=== PATIENT | female | born 1980 | race Two or more races ===

== ENCOUNTER 2018-06-26 15:46 | Emergency (ER) | payer SELFPAY ==
[~2018-06-26] VITALS: Ht 160 cm; Wt 114.3 kg
[2018-06-26] MEDS ORDERED: HYOSCYAMINE 0.125 MG TAB.RAPDIS PO STA (16:26)
[2018-06-26] MEDS ORDERED: IV RINGERS,LACTATED 1000ML 1,000 ML IV SCH (16:30)
[2018-06-26 16:41] LABS: BASO # 0.1 x10^3/uL (0.0-0.2); BASO % 1 % (0-3); EOS # 0.1 x10^3/uL (0.0-0.7); EOS % 2 % (0-3); HEMATOCRIT 37.8 % (36.0-47.0); HEMOGLOBIN 12.8 g/dL (12.0-15.5); LYMPH # 2.6 x10^3/uL (1.0-4.8); LYMPH % 38 % (24-48); MEAN CORPUSCULAR HEMOGLOBIN 31 pg (25-35); MEAN CORPUSCULAR HGB CONC 34 g/dL (31-37); MEAN CORPUSCULAR VOLUME 91 fL (79-100); MONO # 0.4 x10^3/uL (0.0-1.1); MONO % 7 % (0-9); NEUT # 3.6 x10^3uL (1.8-7.7); NEUT % 52 % (31-73); PLATELET COUNT 247 x10^3/uL (140-400); RED BLOOD COUNT 4.14 x10^6/uL (3.50-5.40); RED CELL DISTRIBUTION WIDTH 13.3 % (11.5-14.5); WHITE BLOOD COUNT 6.9 x10^3/uL (4.0-11.0)
[2018-06-26] MEDS ORDERED: KETOROLAC 30 MG/ML VIAL. IV ONE (16:45)
[2018-06-26 16:50] LABS: PROTHROMBIN TIME PATIENT 11.9 SEC (11.7-14.0)
[2018-06-26 16:51] LABS: CALCIUM 9.1 mg/dL (8.5-10.1); CREATININE 0.6 mg/dL (0.6-1.0); GFR 112.5; POTASSIUM 4.2 mmol/L (3.5-5.1)
--- NOTE | 2018-06-26 16:54 | PHYS DOC ---
Past Medical History Past Medical History: Migraines Past Surgical History: Alcohol Use: None Drug Use: None Adult General Chief Complaint Chief Complaint: ABDOMINAL PAIN HPI HPI Patient is a 37 year old FEMALE who presents with diffuse abdominal pain that started approximately 3 hours ago causing the patient some difficulty breathing at the time and some chest pain. Patient reports the chest pain does get better with walking. No worsening with deep breaths. It does get worse with moving around. Patient reports that her abdomen feels bloated. No issues with bowel habits, no blood in the stool, no diarrhea, no constipation. Patient's surgical history is significant for . No previous appendectomy nor cholecystectomy. Patient reports some nausea, no vomiting. Has taken no medication for pain.[] Review of Systems Review of Systems Constitutional: Denies fever or chills [] Eyes: Denies change in visual acuity, redness, or eye pain [] HENT: Denies nasal congestion or sore throat [] Respiratory: Denies cough or shortness of breath [] Cardiovascular: No additional information not addressed in HPI [] GI: See history of present illness[] : Denies dysuria or hematuria [] Musculoskeletal: Denies back pain or joint pain [] Integument: Denies rash or skin lesions [] Neurologic: Denies headache, focal weakness or sensory changes [] Endocrine: Denies polyuria or polydipsia [] All other systems were reviewed and found to be within normal limits, except as documented in this note. Current Medications Current Medications Current Medications Medications (Trade) Dose Ordered Sig/Aaron Start Time Stop Time Status Last Admin Dose Admin Hyoscyamine (Anaspaz) 0.125 mg 1X STAT 06/26/18 16:26 06/26/18 16:34 DC 06/26/18 16:50 0.125 MG Info (CONTRAST GIVEN -- Rx MONITORING) 1 each PRN DAILY PRN 06/26/18 17:00 06/28/18 16:59 Iohexol (Omnipaque 300 Mg/ml) 75 ml 1X ONCE 06/26/18 17:00 06/26/18 17:01 DC 06/26/18 17:00 75 ML Ketorolac Tromethamine (Toradol 30mg Vial) 30 mg 1X ONCE 06/26/18 16:45 06/26/18 16:46 DC 06/26/18 16:50 30 MG Ringer's Solution 1,000 ml @ 1,000 mls/hr Q1H 06/26/18 16:30 06/26/18 17:29 DC 06/26/18 16:41 1,000 MLS/HR Allergies Allergies Allergies Coded Allergies Type Severity Reaction Last Updated Verified No Known Drug Allergies 06/26/18 No Physical Exam Physical Exam Constitutional: Well developed, well nourished, mild discomfort, non-toxic appearance. [] HENT: Normocephalic, atraumatic, bilateral external ears normal, oropharynx moist, no oral exudates, nose normal. [] Eyes: PERRLA, EOMI, conjunctiva normal, no discharge. [] Neck: Normal range of motion, no tenderness, supple, no stridor. [] Cardiovascular:Heart rate regular rhythm, no murmur, patient has some tenderness in the mid sternum that re-creates her pain when palpated. There is no crepitus. [] Lungs & Thorax: Bilateral breath sounds clear to auscultation [] Abdomen: Bowel sounds normal, soft, diffuse tenderness, no masses, no pulsatile masses. [] Skin: Warm, dry, no erythema, no rash. [] Back: No tenderness, no CVA tenderness. [] Extremities: No tenderness, no cyanosis, no clubbing, ROM intact, no edema. [] Neurologic: Alert and oriented X 3, normal motor function, normal sensory function, no focal deficits noted. [] Psychologic: Affect normal, judgement normal, mood normal. [] Current Patient Data Vital Signs Vital Signs Date Time Temp Pulse Resp B/P (MAP) Pulse Ox O2 Delivery O2 Flow Rate FiO2 06/26/18 16:00 97.5 78 18 132/83 (99) 97 Room Air 97.5 Lab Values Laboratory Tests Test 06/26/18 16:04 06/26/18 16:50 06/26/18 17:43 White Blood Count 6.9 x10^3/uL (4.0-11.0) Red Blood Count 4.14 x10^6/uL (3.50-5.40) Hemoglobin 12.8 g/dL (12.0-15.5) Hematocrit 37.8 % (36.0-47.0) Mean Corpuscular Volume 91 fL (79-100) Mean Corpuscular Hemoglobin 31 pg (25-35) Mean Corpuscular Hemoglobin Concent 34 g/dL (31-37) Red Cell Distribution Width 13.3 % (11.5-14.5) Platelet Count 247 x10^3/uL (140-400) Neutrophils (%) (Auto) 52 % (31-73) Lymphocytes (%) (Auto) 38 % (24-48) Monocytes (%) (Auto) 7 % (0-9) Eosinophils (%) (Auto) 2 % (0-3) Basophils (%) (Auto) 1 % (0-3) Neutrophils # (Auto) 3.6 x10^3uL (1.8-7.7) Lymphocytes # (Auto) 2.6 x10^3/uL (1.0-4.8) Monocytes # (Auto) 0.4 x10^3/uL (0.0-1.1) Eosinophils # (Auto) 0.1 x10^3/uL (0.0-0.7) Basophils # (Auto) 0.1 x10^3/uL (0.0-0.2) Prothrombin Time 11.9 SEC (11.7-14.0) Prothrombin Time INR 0.9 (0.8-1.1) D-Dimer (Mignon) < 0.27 ug/mlFEU Sodium Level 140 mmol/L (136-145) Potassium Level 4.2 mmol/L (3.5-5.1) Chloride Level 104 mmol/L (98-107) Carbon Dioxide Level 23 mmol/L (21-32) Anion Gap 13 (6-14) Blood Urea Nitrogen 14 mg/dL (7-20) Creatinine 0.6 mg/dL (0.6-1.0) Estimated GFR (Cockcroft-Gault) 112.5 BUN/Creatinine Ratio 23 (6-20) H Glucose Level 117 mg/dL (70-99) H Calcium Level 9.1 mg/dL (8.5-10.1) Total Bilirubin 0.2 mg/dL (0.2-1.0) Aspartate Amino Transferase (AST) 27 U/L (15-37) Alanine Aminotransferase (ALT) 58 U/L (14-59) Alkaline Phosphatase 120 U/L (46-116) H Troponin I Quantitative < 0.017 ng/mL (0.000-0.055) Total Protein 7.4 g/dL (6.4-8.2) Albumin 3.6 g/dL (3.4-5.0) Albumin/Globulin Ratio 0.9 (1.0-1.7) L Lipase 198 U/L (73-393) Urine Collection Type Unknown Urine Color Yellow Urine Clarity Clear Urine pH 7.0 Urine Specific [place] 1.010 Urine Protein Negative mg/dL (NEG-TRACE) Urine Glucose (UA) Negative mg/dL (NEG) Urine Ketones (Stick) Negative mg/dL (NEG) Urine Blood Negative (NEG) Urine Nitrite Negative (NEG) Urine Bilirubin Negative (NEG) Urine Urobilinogen Dipstick 0.2 mg/dL (0.2 mg/dL) Urine Leukocyte Esterase Negative (NEG) Urine RBC Occ /HPF (0-2) Urine WBC 1-4 /HPF (0-4) Urine Squamous Epithelial Cells Many /LPF Urine Bacteria 0 /HPF (0-FEW) POC Urine HCG, Qualitative Hcg negative (Negative) Laboratory Tests 06/26/18 16:04 Laboratory Tests 06/26/18 16:04 EKG EKG EKG shows a normal sinus rhythm at 74 bpm, no ST elevations, normal axis, normal QTC at 422 ms. There is no old EKG available for comparison.[] Radiology/Procedures Radiology/Procedures Chest x-ray showed no acute features Abdominal and pelvis CT scan showed no acute features[] Course & Med Decision Making Course & Med Decision Making Pertinent Labs and Imaging studies reviewed. (See chart for details) Medical decision making: There is no evidence of obstruction, perforation, nor surgical etiology for the abdominal pain. No evidence of acute coronary syndrome , no evidence of pulmonary embolism, nor pneumonia. ED course: Patient arrived, was placed in bed, tolerated exam well. Patient was given pain medication with some improvement. Patient was transported to and from CT scan without any complications. After return of lab and x-ray findings, these were discussed with the patient who voiced understanding. All questions were answered.[] Dragon Disclaimer Dragon Disclaimer This electronic medical record was generated, in whole or in part, using a voice recognition dictation system. Departure Departure Impression: Primary Impression: Abdominal pain Additional Impression: Chest pain Referrals: NO PCP (PCP) Patient Instructions: Abdominal Pain, Chest Pain (Nonspecific) Additional Instructions: Follow-up with your regular doctor in 2 days. Drink plenty of fluids. Return to the ER if any concerns. Scripts Metoclopramide Hcl (REGLAN) 10 Mg Tablet 10 MG PO QIDACHS, #30 TAB 0 Refills Prov: MARIETRIXIE 06/26/18 Meloxicam (MOBIC) 7.5 Mg Tablet 7.5 MG PO DAILY for 14 Days, #14 TAB Prov: MARIETRIXIE MELENDEZ 06/26/18 Dicyclomine Hcl (DICYCLOMINE HCL) 20 Mg Tablet 20 MG PO QID, #20 TAB Prov: SANTAMARLEEPHONGTRIXIE MELENDEZ 06/26/18 Problem Qualifiers Primary Impression: Abdominal pain Abdominal location: generalized Qualified Codes: R10.84 - Generalized abdominal pain Additional Impression: Chest pain Chest pain type: unspecified Qualified Codes: R07.9 - Chest pain, unspecified TRIXIE SALAZAR Jun 26, 2018 16:54
[2018-06-26 16:56] LABS: D-DIMER < 0.27 ug/mlFEU (0.00-0.50)
[2018-06-26 16:57] LABS: ALBUMIN 3.6 g/dL (3.4-5.0); ALBUMIN/GLOBULIN RATIO 0.9 (1.0-1.7); TOTAL BILIRUBIN 0.2 mg/dL (0.2-1.0); TOTAL PROTEIN 7.4 g/dL (6.4-8.2)
[2018-06-26] MEDS ORDERED: IOHEXOL 300 MG/ML 100ML VIAL. IV ONE (17:00)
[2018-06-26] MEDS ORDERED: CONTRAST GIVEN. MC PRN (17:00)
[2018-06-26 17:03] LABS: BILIRUBIN,URINE NEGATIVE (NEG); CLARITY,URINE CLEAR; COLOR,URINE YELLOW; NITRITE,URINE NEGATIVE (NEG); PROTEIN,URINE NEGATIVE (NEG-TRACE); UROBILINOGEN,URINE 0.2 mg/dL (0.2 mg/dL)
[2018-06-26 17:12] LABS: BACTERIA,URINE 0 /HPF (0-FEW); RBC,URINE OCC /HPF (0-2); SQUAMOUS EPITHELIAL CELL,UR MANY /LPF
--- NOTE | 2018-06-26 17:21 | RAD ---
EXAM: Abdomen and pelvis CT with intravenous contrast. HISTORY: Pain. TECHNIQUE: Computed tomographic images of the abdomen and pelvis were obtained following the administration of 75 cc Omnipaque 300 intravenous contrast. Multiplanar reformatting was performed. *One or more of the following individualized dose reduction techniques were utilized for this examination: 1. Automated exposure control. 2. Adjustment of the mA and/or kV according to patient size. 3. Use of iterative reconstruction technique. COMPARISON: None. FINDINGS: Evaluation of the lower thorax demonstrates posterior dependent and basilar atelectasis. There is no infiltrate or pleural effusion. There is slight increased extrapleural fat. The liver is upper normal in size and there is suspected slight hepatic steatosis. No focal hepatic lesion is seen. There is calcification within the gallbladder fundus likely due to cholelithiasis rather than wall calcification. The pancreas, spleen and adrenal glands are unremarkable. There are tiny renal cortical cysts. There is a 1.7 cm cyst with adjacent cortical scarring within the upper pole of the left kidney. The bladder is unremarkable. There is a 1.7 cm dominant right ovarian follicle. There is no appendicitis. There is no bowel obstruction. There is no abnormal bowel wall thickening. There is no lymphadenopathy. There is a fat-containing umbilical hernia. The hernia sac measures 4.9 cm. There is no suspicious osseous lesion. IMPRESSION: 1. No acute abdominal or pelvic finding. 2. Small fat-containing umbilical hernia. 3. Upper normal liver size and suspected slight hepatic steatosis. 4. Renal cysts and cortical scarring within the upper pole the left kidney. 5. Cholelithiasis. Electronically signed by: Talisha Bains MD (06/26/2018 5:17 PM) [facility]
--- NOTE | 2018-06-26 17:24 | RAD ---
PORTABLE CHEST 1V dated 06/26/2018 5:07 PM. Comparison: None. Clinical Indication: ER PATIENT. ATRAUMATIC MIDSTERNAL CHEST PAIN. NO PRIORS Findings: Single upright portable exam performed. Heart and mediastinal contours are within normal limits. Lungs are clear without focal consolidation. Vascular interstitium within normal limits. No pleural effusion or pneumothorax. Impression: Negative portable chest. Electronically signed by: Humberto Andersen MD (06/26/2018 5:21 PM) [id number]
[2018-06-26 18:03] VITALS: BP 129/68
[2018-06-26] MEDS ORDERED: MELO7.5T5 PO (18:10)
[2018-06-26] MEDS ORDERED: METO10TA81 PO (18:10)
[2018-06-26] MEDS ORDERED: DICY20TA3 PO (18:10)
--- NOTE | 2018-06-27 07:12 | EKG ---
[facility] [address] [place] [address] Test Date: 2018-06-26 Test Time: 16:04:40 Pat Name: JACQUI HERNANDEZ Department: Room: Gender: F Welfare Manager: : 1980 Requested By: TRIXIE SALAZAR Order Number: [id number] Reading MD: Jose Guzman MD Measurements Intervals [place] Rate: 74 P: 39 MI: 156 QRS: 24 QRSD: 90 T: 41 QT: 380 QTc: 422 Interpretive Statements SINUS RHYTHM Electronically Signed On 06-27-2018 17:50:56 MANAGEMENT NURSE RN by Jose Guzman MD
== END 2018-06-26 18:15 | disposition home or self-care (01) ==
LOC: ER 15:46
DX: R10.84 Generalized abdominal pain (principal); R07.89 Other chest pain
CPT/HCPCS: 36415; 71045; 74177; 80053; 81001; 81025; 83690; 84484; 85025; 85379; 85610; 93005; 96374; 99285; J1885; Q9967; J7120

== ENCOUNTER 2019-12-26 14:55 | Emergency (ER) | payer SELFPAY ==
[~2019-12-26] VITALS: Ht 154.9 cm; Wt 190.0 kg
[~2019-12-26 14:55] MED LIST: DICY20TA3 PO; MELO7.5T5 PO; METO10TA81 PO
[2019-12-26 15:30] LABS: BASO # 0.1 x10^3/uL (0.0-0.2); BASO % 1 % (0-3); EOS # 0.1 x10^3/uL (0.0-0.7); EOS % 1 % (0-3); HEMATOCRIT 41.4 % (36.0-47.0); HEMOGLOBIN 13.9 g/dL (12.0-15.5); LYMPH # 1.8 x10^3/uL (1.0-4.8); LYMPH % 24 % (24-48); MEAN CORPUSCULAR HEMOGLOBIN 31 pg (25-35); MEAN CORPUSCULAR HGB CONC 34 g/dL (31-37); MEAN CORPUSCULAR VOLUME 91 fL (79-100); MONO # 0.6 x10^3/uL (0.0-1.1); MONO % 8 % (0-9); NEUT # 4.9 x10^3/uL (1.8-7.7); NEUT % 66 % (31-73); PLATELET COUNT 263 x10^3/uL (140-400); RED BLOOD COUNT 4.56 x10^6/uL (3.50-5.40); RED CELL DISTRIBUTION WIDTH 13.5 % (11.5-14.5); WHITE BLOOD COUNT 7.4 x10^3/uL (4.0-11.0)
[2019-12-26] MEDS ORDERED: IV NORMAL SALINE 1000ML BAG 1,000 ML IV ONE (15:30)
[2019-12-26] MEDS ORDERED: FAMOTIDINE 20 MG/2 ML VIAL IVP ONE (15:30)
[2019-12-26] MEDS ORDERED: fentaNYL PF VIAL 100 MCG/2 ML VIAL IVP ONE (15:30)
[2019-12-26] MEDS ORDERED: ONDANSETRON PF 4 MG/2 ML VIAL. IVP ONE (15:30)
[2019-12-26 15:31] LABS: BILIRUBIN,URINE NEGATIVE (NEG); CLARITY,URINE CLEAR; NITRITE,URINE NEGATIVE (NEG); PH,URINE 6.5 (<5.0-8.0); PROTEIN,URINE NEGATIVE (NEG-TRACE); UROBILINOGEN,URINE 0.2 mg/dL (0.2 mg/dL)
[2019-12-26 15:36] LABS: BARBITURATES NEG (NEG); BENZODIAZEPINES NEG (NEG); CANNABINOIDS NEG (NEG); COCAINE NEG (NEG); METHADONE NEG (NEG); OPIATES NEG (NEG); PHENCYCLIDINE NEG (NEG)
[2019-12-26 15:37] LABS: AMPHETAMINE/METHAMPHETAMINE NEG (NEG); COLOR,URINE STRAW
[2019-12-26 15:39] LABS: BACTERIA,URINE MOD /HPF (0-FEW); RBC,URINE 0 /HPF (0-2); SQUAMOUS EPITHELIAL CELL,UR MOD /LPF; WBC,URINE 0 /HPF (0-4)
[2019-12-26 15:40] LABS: CALCIUM 8.7 mg/dL (8.5-10.1); CREATININE 0.6 mg/dL (0.6-1.0); GFR 111.3; POTASSIUM 3.7 mmol/L (3.5-5.1)
[2019-12-26 15:46] LABS: ALBUMIN 3.7 g/dL (3.4-5.0); ALBUMIN/GLOBULIN RATIO 0.9 (1.0-1.7); TOTAL BILIRUBIN 0.3 mg/dL (0.2-1.0); TOTAL PROTEIN 7.6 g/dL (6.4-8.2)
--- NOTE | 2019-12-26 15:57 | PHYS DOC ---
Past Medical History Past Medical History: Diabetes-Type II, Hypertension, Migraines Past Surgical History: Smoking Status: Never Smoker Alcohol Use: None Drug Use: None General Adult EDM: Chief Complaint: ABDOMINAL PAIN HPI: HPI: Patient is a 39 year old Uzbek-speaking female with history of hypertension, diabetes type 2, gallstones, who presents the ED today complaining of 10 out of 10 right upper quadrant abdominal pain described as sharp and intermittent with no nausea vomiting, symptoms have been going on for a week. Patient denies any fever. [employer] line was used for Uzbek Review of Systems: Review of Systems: Constitutional: Denies fever or chills. [] Eyes: Denies change in visual acuity. [] HENT: Denies nasal congestion or sore throat. [] Respiratory: Denies cough or shortness of breath. [] Cardiovascular: Denies chest pain or edema. [] GI: Reports right upper quadrant abdominal pain, denies nausea, vomiting, bloody stools or diarrhea. [] : Denies dysuria. [] Musculoskeletal: Denies back pain or joint pain. [] Integument: Denies rash. [] Neurologic: Denies headache, focal weakness or sensory changes. [] Psychiatric: Denies depression or anxiety. [] Heart Score: Risk Factors: Risk Factors: DM, Current or recent (<one month) smoker, HTN, HLP, family history of CAD, obesity. Risk Scores: Score 0 - 3: 2.5% MACE over next 6 weeks - Discharge Home Score 4 - 6: 20.3% MACE over next 6 weeks - Admit for Clinical Observation Score 7 - 10: 72.7% MACE over next 6 weeks - Early Invasive Strategies Current Medications: Current Medications Medications (Trade) Dose Ordered Sig/[facility] Start Time Stop Time Status Last Admin Dose Admin Famotidine (Pepcid Vial) 20 mg 1X ONCE 12/26/19 15:30 12/26/19 15:31 DC 12/26/19 15:41 20 MG Fentanyl Citrate (Fentanyl 2ml Vial) 50 mcg 1X ONCE 12/26/19 15:30 12/26/19 15:31 DC 12/26/19 15:41 50 MCG Ondansetron HCl (Zofran) 4 mg 1X ONCE 12/26/19 15:30 12/26/19 15:31 DC 12/26/19 15:41 4 MG Sodium Chloride 1,000 ml @ 1,000 mls/hr 1X ONCE 12/26/19 15:30 12/26/19 16:29 12/26/19 15:41 1,000 MLS/HR Allergies: Allergies: Allergies Coded Allergies Type Severity Reaction Last Updated Verified No Known Drug Allergies 06/26/18 No Physical Exam: PE: Constitutional: Well developed, well nourished, no acute distress, non-toxic appearance. [] HENT: Normocephalic, atraumatic, bilateral external ears normal, oropharynx moist, no oral exudates, nose normal. [] Eyes: PERRLA, EOMI, conjunctiva normal, no discharge. [] Neck: Normal range of motion, no tenderness, supple, no stridor. [] Cardiovascular:Heart rate regular rhythm, no murmur [] Lungs & Thorax: Bilateral breath sounds clear to auscultation [] Abdomen: Bowel sounds normal, soft, tenderness on palpation of the right upper quadrant with negative Hicks sign, no masses, no pulsatile masses. No right lower quadrant tenderness Skin: Warm, dry, no erythema, no rash. [] Back: No tenderness, no CVA tenderness. [] Extremities: No tenderness, no cyanosis, no clubbing, ROM intact, no edema. [] Neurologic: Alert and oriented X 3, normal motor function, normal sensory function, no focal deficits noted. [] Psychologic: Affect normal, judgement normal, mood normal. [] Current Patient Data: Labs: Laboratory Tests Test 12/26/19 15:05 12/26/19 15:17 12/26/19 15:21 Urine Collection Type Unknown Urine Color Straw Urine Clarity Clear Urine pH 6.5 (<5.0-8.0) Urine Specific [place] 1.010 (1.000-1.030) Urine Protein Negative mg/dL (NEG-TRACE) Urine Glucose (UA) Negative mg/dL (NEG) Urine Ketones (Stick) Negative mg/dL (NEG) Urine Blood Negative (NEG) Urine Nitrite Negative (NEG) Urine Bilirubin Negative (NEG) Urine Urobilinogen Dipstick 0.2 mg/dL (0.2 mg/dL) Urine Leukocyte Esterase Negative (NEG) Urine RBC 0 /HPF (0-2) Urine WBC 0 /HPF (0-4) Urine Squamous Epithelial Cells Mod /LPF Urine Bacteria Mod /HPF (0-FEW) Urine Opiates Screen Neg (NEG) Urine Methadone Screen Neg (NEG) Urine Barbiturates Neg (NEG) Urine Phencyclidine Screen Neg (NEG) Urine Amphetamine/Methamphetamine Neg (NEG) Urine Benzodiazepines Screen Neg (NEG) Urine Cocaine Screen Neg (NEG) Urine Cannabinoids Screen Neg (NEG) Urine Ethyl Alcohol Neg (NEG) White Blood Count 7.4 x10^3/uL (4.0-11.0) Red Blood Count 4.56 x10^6/uL (3.50-5.40) Hemoglobin 13.9 g/dL (12.0-15.5) Hematocrit 41.4 % (36.0-47.0) Mean Corpuscular Volume 91 fL (79-100) Mean Corpuscular Hemoglobin 31 pg (25-35) Mean Corpuscular Hemoglobin Concent 34 g/dL (31-37) Red Cell Distribution Width 13.5 % (11.5-14.5) Platelet Count 263 x10^3/uL (140-400) Neutrophils (%) (Auto) 66 % (31-73) Lymphocytes (%) (Auto) 24 % (24-48) Monocytes (%) (Auto) 8 % (0-9) Eosinophils (%) (Auto) 1 % (0-3) Basophils (%) (Auto) 1 % (0-3) Neutrophils # (Auto) 4.9 x10^3/uL (1.8-7.7) Lymphocytes # (Auto) 1.8 x10^3/uL (1.0-4.8) Monocytes # (Auto) 0.6 x10^3/uL (0.0-1.1) Eosinophils # (Auto) 0.1 x10^3/uL (0.0-0.7) Basophils # (Auto) 0.1 x10^3/uL (0.0-0.2) Sodium Level 138 mmol/L (136-145) Potassium Level 3.7 mmol/L (3.5-5.1) Chloride Level 104 mmol/L (98-107) Carbon Dioxide Level 26 mmol/L (21-32) Anion Gap 8 (6-14) Blood Urea Nitrogen 8 mg/dL (7-20) Creatinine 0.6 mg/dL (0.6-1.0) Estimated GFR (Cockcroft-Gault) 111.3 BUN/Creatinine Ratio 13 (6-20) Glucose Level 109 mg/dL (70-99) H Calcium Level 8.7 mg/dL (8.5-10.1) Total Bilirubin 0.3 mg/dL (0.2-1.0) Aspartate Amino Transferase (AST) 22 U/L (15-37) Alanine Aminotransferase (ALT) 54 U/L (14-59) Alkaline Phosphatase 117 U/L (46-116) H Total Protein 7.6 g/dL (6.4-8.2) Albumin 3.7 g/dL (3.4-5.0) Albumin/Globulin Ratio 0.9 (1.0-1.7) L Lipase 145 U/L (73-393) Ethyl Alcohol Level < 10 mg/dL (0-10) POC Urine HCG, Qualitative Hcg negative (Negative) Laboratory Tests 12/26/19 15:17 Laboratory Tests 12/26/19 15:17 Vital Signs: Vital Signs Date Time Temp Pulse Resp B/P (MAP) Pulse Ox O2 Delivery O2 Flow Rate FiO2 12/26/19 15:41 22 Room Air 12/26/19 15:05 98.6 79 165/73 (103) 97 98.6 EKG: EKG: [] Radiology/Procedures: Radiology/Procedures: []PROCEDURE: ABDOMEN LTD ABDOMEN LTD History: Right upper quadrant pain. History of gallstones. Comparison: CT June 26, 2018. Technique: Transabdominal ultrasound images are obtained of the right upper quadrant. Findings: Visualized pancreas is normal seen due to overlying bowel gas. Liver is increased in echogenicity. Right hepatic lobe measures 18.1 cm. Portal flow is hepatopedal. Degraded evaluation of the liver due to patient body habitus. Gallbladder not well seen due to overlying structures and patient body habitus. Cholelithiasis. Contracted gallbladder. No gallbladder wall thickening. Common bile duct not well identified due to overlying structures and patient body habitus. The right kidney measures 11.7 x 5.0 x 4.7 cm. No hydronephrosis. Aorta and IVC not well seen due to overlying bowel gas. IMPRESSION: 1. Degraded evaluation. 2. Cholelithiasis. 3. Hepatomegaly with increased echotexture, may indicate steatosis. Electronically signed by: Low Naranjo DO (12/26/2019 4:00 PM) [id number] DICTATED and SIGNED BY: LOW NARANJO DO DATE: 12/26/19 1600 Course & Med Decision Making: Course & Med Decision Making Pertinent Labs and Imaging studies reviewed. (See chart for details) This is a 39-year-old female patient with history of gallstones presenting today complaining of right upper quadrant abdominal pain for a week. Labs are negative for any acute findings. Limited right upper quadrant ultrasound noted for cholelithiasis. Patient was discharged to home, follow-up with general surgery in the next 7 days. Dragon Disclaimer: Dragon Disclaimer: This electronic medical record was generated, in whole or in part, using a voice recognition dictation system. Departure Departure Impression: Primary Impression: Cholelithiasis Qualified Codes: K80.20 - Calculus of gallbladder without cholecystitis without obstruction Disposition: HOME, SELF-CARE Condition: STABLE Referrals: NO PCP (PCP) BERTO GUEVARA MD follow up in 1 week Patient Instructions: Cholelithiasis, [id number] Additional Instructions: You were evaluated in the emergency room and noted to have gallstones. Contact the provided general surgeon and follow-up as an outpatient. Take the prescribed pain medicine as needed for pain. Do not drive operate machinery on this medications. Scripts Ondansetron (ONDANSETRON ODT) 4 Mg Tab.rapdis 1 TAB PO PRN Q6-8HRS, #16 TAB Prov: AMALIA KWON GRAIN ELEVATOR MOTOR STARTER 12/26/19 Hydrocodone/Apap 5-325 (NORCO 5-325 TABLET) 1 Each Tablet 1 TAB PO Q6HRS, #12 TAB Prov: AMALIA KWON GRA[employer] ELEVATOR MOTOR STARTER 12/26/19 AMALIA KWON APRN December 26, 2019 15:57
--- NOTE | 2019-12-26 16:03 | RAD ---
ABDOMEN LTD History: Right upper quadrant pain. History of gallstones. Comparison: CT June 26, 2018. Technique: Transabdominal ultrasound images are obtained of the right upper quadrant. Findings: Visualized pancreas is normal seen due to overlying bowel gas. Liver is increased in echogenicity. Right hepatic lobe measures 18.1 cm. Portal flow is hepatopedal. Degraded evaluation of the liver due to patient body habitus. Gallbladder not well seen due to overlying structures and patient body habitus. Cholelithiasis. Contracted gallbladder. No gallbladder wall thickening. Common bile duct not well identified due to overlying structures and patient body habitus. The right kidney measures 11.7 x 5.0 x 4.7 cm. No hydronephrosis. Aorta and IVC not well seen due to overlying bowel gas. IMPRESSION: 1. Degraded evaluation. 2. Cholelithiasis. 3. Hepatomegaly with increased echotexture, may indicate steatosis. Electronically signed by: Beck Naranjo DO (12/26/2019 4:00 PM) [id number]
[2019-12-26] MEDS ORDERED: HYDR-3164 PO (16:09)
[2019-12-26] MEDS ORDERED: ONDA4TAB12 PO (16:09)
[2019-12-26 16:11] VITALS: BP 120/61
== END 2019-12-26 16:25 | disposition home or self-care (01) ==
LOC: ER 14:55
DX: K80.20 Calculus of gallbladder without cholecystitis without obstruction (principal); I10 Essential (primary) hypertension; E11.9 Type 2 diabetes mellitus without complications; G43.909 Migraine, unspecified, not intractable, without status migrainosus
CPT/HCPCS: 36415; 76705; 80053; 80307; 81001; 81025; 83690; 85025; 96374; 96375; 99284; G0480; J2405; J3010; J3490; J7030